=== PATIENT | female | born 1960 | race Caucasian/White ===

== ENCOUNTER 2022-06-17 05:25 | Day surgery (SDC) | payer BC ==
[2022-06-15 17:07] LABS: HEMOGLOBIN 14.3 g/dl (12.5-16.0); MEAN CELL VOLUME 94 fl (80.0-100.0); MEAN CORPUSCULAR HEMOGLOBIN 31 pg (27-31); MEAN CORPUSCULAR HGB CONC 33 g/dl (33.0-37.0); MEAN PLATELET VOLUME 10.6 fl (7.4-10.4); PLATELET COUNT 196 K/mm3 (130-400); RED BLOOD COUNT 4.56 M/mm3 (4.10-5.30); REDCELL DISTRIBUTION WIDTH-CV 13.4 % (11.5-14.5)
[2022-06-15 17:25] LABS: CREATININE, serum 0.69 mg/dL (0.57-1.11); POTASSIUM 4.3 mmol/L (3.5-4.5)
[~2022-06-17] VITALS: Ht 170.2 cm; Wt 123.2 kg
[2022-06-17] VITALS (10 sets, daily range): BP systolic 125–139; BP diastolic 53–87; PULSE 65–109; TEMP 97.5–98.5
[2022-06-17] MEDS ORDERED: CENTRUM SILVER1 CTB PO (07:11)
[2022-06-17] MEDS ORDERED: [UNRECOGNIZED DRUG - OTHER] PO (07:11)
[2022-06-17] MEDS ORDERED: EPA FISH OIL1 SGL PO (07:13)
[2022-06-17] MEDS ORDERED: GREEN TEA PO (07:13)
[2022-06-17] MEDS ORDERED: FLAX SEED PO (07:14)
[2022-06-17] MEDS ORDERED: OLIVE OIL PO (07:16)
[2022-06-17] MEDS ORDERED: COLLAGEN POWDER PO (07:17)
[2022-06-17] MEDS ORDERED: [UNRECOGNIZED DRUG - OTHER] PO (07:20)
[2022-06-17] MEDS ORDERED: [UNRECOGNIZED DRUG - OTHER] PO (07:21)
[2022-06-17] MEDS ORDERED: FLONASEALLERGY NS (07:23)
[2022-06-17] MEDS ORDERED: TURMERIC500 MG PO (07:23)
[2022-06-17] MEDS ORDERED: ALLEGRA ALLERG180 MG PO (07:25)
[2022-06-17] MEDS ORDERED: COLACE 100100 MG/CAP PO (09:47)
[2022-06-17] MEDS ORDERED: NORCO 325 MG-51 TAB PO (09:48)
--- NOTE | 2022-06-17 12:35 | NUR ---
PATIENT IS ORIENTED BUT VERY DROWSY. VSS. DENIES PAIN OR NAUSEA. ABD LAP SITES X5 WITH GLUED CLOSURE. HAYDEN DRAIN DC'D IN PACU, SITE COVERED WITH BANDAID. IV FLUIDS INFUSING INTO RIGHT WRIST IV. HANEY TO DD WITH SMALL AMOUNTS OF YELLOW URINE NOTED. HEAD TO TOE ASSESSMENT COMPLETE. FAMILY AT BEDSIDE. ORIENTED TO ROOM. CALL LIGHT IN REACH.
[2022-06-18 00:15] VITALS: BP 127/54
--- NOTE | 2022-06-18 01:52 | NUR ---
Patient alert and oriented, rated her abdominal pain as 4/10 if she lays still but if she moves it will go up to 10/10, oxycodone given as ordered, patient also is concerned that her diastolic BP is trending down, from 70's down to 50's, will closely monitor, denies dizziness, charge nurse informed regarding this as well, with 5 lap sites skin glued and one old HAYDEN drain site with band aid clean dry and intact, still with martienz draining clear yellow urine, IV to INT, call light and personal items within reach.
[2022-06-18 02:45] VITALS: BP 125/50
[2022-06-18 03:50] VITALS: BP 116/51; PULSE 84; TEMP 98.7
[2022-06-18 06:54] LABS: BASO % 0.1 % (0.0-2.0); GRAN # 12.1 K/mm3 (1.4-6.5); GRAN % 87.3 % (42.2-75.2); HEMATOCRIT 38.2 % (37.0-47.0); HEMOGLOBIN 12.9 g/dl (12.5-16.0); LYMPH # 0.8 K/mm3 (1.2-3.4); LYMPH % 5.8 % (20.0-51.0); MEAN CELL VOLUME 95 fl (80.0-100.0); MEAN CORPUSCULAR HEMOGLOBIN 32 pg (27-31); MEAN CORPUSCULAR HGB CONC 34 g/dl (33.0-37.0); MEAN PLATELET VOLUME 11.4 fl (7.4-10.4); MONO # 0.9 K/mm3 (0.1-0.6); MONO % 6.3 % (1.7-9.3); PLATELET COUNT 207 K/mm3 (130-400); RED BLOOD COUNT 4.03 M/mm3 (4.10-5.30); REDCELL DISTRIBUTION WIDTH-CV 13.6 % (11.5-14.5)
[2022-06-18 07:31] VITALS: BP 119/56; PULSE 82; TEMP 98.4
--- NOTE | 2022-06-18 09:41 | NUR ---
Initial visit; Patient thanked Industrial Sales Engineer for looking in on her, wishing her well and God's blessings and to keep her in Industrial Sales Engineer's prayers.
[2022-06-18 11:37] VITALS: BP 115/48; PULSE 83; TEMP 98.6
== END 2022-06-18 16:26 | disposition home or self-care (01) ==
LOC: SDCO 05:25 → SURG 12:10 → SDCO 06-18 16:26
PROVIDERS: Urology
DX: K80.20 Calculus of gallbladder without cholecystitis without obstruction (principal); N28.1 Cyst of kidney, acquired; N11.9 Chronic tubulo-interstitial nephritis, unspecified; D41.01 Neoplasm of uncertain behavior of right kidney; E66.01 Morbid (severe) obesity due to excess calories; Z68.41 Body mass index [BMI] 40.0-44.9, adult
CPT/HCPCS: OP; A4314; A9284; J0690; J1100; J2250; J2405; J2704; J2795; J3010; J7120